=== PATIENT | female | born 1965 | race Hispanic/Latino ===

== ENCOUNTER 2018-07-21 13:14 | Outpatient (CLI) | payer MEDICARE ==
--- NOTE | 2018-07-21 15:02 | Mammography Report ---
Bilateral mammogram and bilateral breast ultrasound: This examination is compromised and done with difficulty due to the patient's special needs. CC and lateral views were obtained bilaterally. There is suboptimal visualization of the breast tissue predominantly in the lateral projections and right cc view. On the left side there is a circumscribed nodule noted laterally in the CC projection. It is elongated and measures approximately 13.5 mm. I cannot identified in the current CC views. In the right breast is a similar nodule noted inferiorly measuring 11.6 mm. The overall breast pattern is heterogeneous and not otherwise remarkable. CAD is utilized. Targeted bilateral ultrasound demonstrates that in the 1:00 position 3 cm from the nipple in the left breast there is a circumscribed homogeneously hypoechoic nodule measuring 11 mm. In the right breast in the 3:00 position 3 cm from the nipple there is also circumscribed and elongated mass measuring 11 mm. It is somewhat inhomogeneous but mostly hypoechoic. Both of these would appear to correspond with the mammographic findings. No other significant findings. 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 Recommendation: Repeat ultrasound in 6 months to confirm stability. BI-RADS CATEGORY: 3 = Probably benign ACR BI-RADS MAMMOGRAPHIC CODES: 0 = Needs additional imaging evaluation; 1 = Negative; 2 = Benign; 3 = Probably benign; 4 = Suspicious; 5 = Malignant; 6 = Known biopsy-proven malignancy COMMENT: 1. Dense breast tissue, i.e., adenosis, fibrocystic changes, etc., may obscure an underlying neoplasm. 2. Approximately 10% of cancers are not detected with mammography. 3. A negative mammography report should not delay biopsy if a clinically suspicious mass is present.
== END 2018-07-21 13:15 | disposition home or self-care (01) ==
LOC: SPVWC 13:14
PROVIDERS: ATTEND Internal Medicine
DX: R92.8 Other abnormal and inconclusive findings on diagnostic imaging of breast (principal)
CPT/HCPCS: 77066; 77067

== ENCOUNTER 2018-12-28 11:00 | Outpatient (CLI) | payer MEDICARE ==
[2018-12-28 12:40] LABS: Hematocrit 34.8 % (30.3-42.9); Hemoglobin 11.1 gm/dl (10.1-14.3); Mean Corpuscular HGB Conc 32 % (30-34); Mean Corpuscular Volume 90 fl (79-97); Platelet Count 363 K/mm3 (140-440); Red Blood Count 3.88 M/mm3 (3.65-5.03); Red Cell Distribution Width 14.4 % (13.2-15.2)
[2018-12-28 12:57] LABS: Alanine Aminotransferase 87 units/L (7-56); BUN/Creatinine Ratio 21; Blood Urea Nitrogen 19 mg/dL (7-17); Calcium 9.2 mg/dL (8.4-10.2); Chol/HDL Ratio 4.03 %; HDL Cholesterol 28 mg/dL (40-59); Hemolysis Index 6; LDL Cholesterol,Direct 75 mg/dL (50-130)
== END 2018-12-28 11:01 | disposition home or self-care (01) ==
LOC: MERGE 11:00 → LAB 11:00
PROVIDERS: ATTEND Internal Medicine
DX: D72.829 Elevated white blood cell count, unspecified (principal); E55.9 Vitamin D deficiency, unspecified; I69.393 Ataxia following cerebral infarction; R73.9 Hyperglycemia, unspecified; I10 Essential (primary) hypertension
CPT/HCPCS: 36415; 80053; 80061; 82306; 82607; 83036; 84443; 85027

== ENCOUNTER 2019-01-09 11:11 | Outpatient (CLI) | payer MEDICARE ==
--- NOTE | 2019-01-15 11:16 | Ultrasound Report ---
BILATERAL BREAST ULTRASOUND: 01/09/19 11:11:00 CLINICAL: Followup bilateral solid nodules. COMPARISON: 07/21/18 FINDINGS: Ultrasound of the right breast demonstrated a stable oval solid hypoechoic superficial mass at 3 o'clock 3 cm from the nipple. It measures 1.0 x 0.5 x 0.6 cm compared to 1.1 x 0.4 x 0.7 cm on last exam.The margin is slightly irregular. No other mass or suspicious shadowing identified. Ultrasound of the left breast demonstrated an oval solid possibly smooth hypoechoic mass at 1 o'clock 3 cm from the nipple measuring 1.1 x 0.7 x 0.4 cm compared to 1.1 x 1.0 and 0.4 cm on the last exam. An oval solid hypoechoic smooth mass at 2 o'clock 3 cm from the nipple measures 5 x 5 x 3 mm compared to 5 x 4 x 2 mm on the last exam. No other mass or suspicious shadowing identified. IMPRESSION: Stable bilateral solid masses with benign sonographic features. The morphology suggest benign fibroadenomas. BI-RADS 2 - - Benign RECOMMENDATION: Clinical followup and routine mammographic screening.
== END 2019-01-09 11:12 | disposition home or self-care (01) ==
LOC: MERGE 11:11 → SPVWC 11:11
PROVIDERS: ATTEND Surgery
DX: N63.12 Unspecified lump in the right breast, upper inner quadrant (principal); N63.21 Unspecified lump in the left breast, upper outer quadrant; I10 Essential (primary) hypertension

== ENCOUNTER 2019-07-12 10:50 | Outpatient (CLI) | payer MEDICARE ==
[2019-07-12 11:30] LABS: BUN/Creatinine Ratio 19; Blood Urea Nitrogen 17 mg/dL (7-17); Calcium 9.4 mg/dL (8.4-10.2); Hemolysis Index 5
== END 2019-07-12 10:51 | disposition home or self-care (01) ==
LOC: LAB 10:50
PROVIDERS: ATTEND Internal Medicine
DX: E87.5 Hyperkalemia (principal); I10 Essential (primary) hypertension
CPT/HCPCS: 36415; 80048

== ENCOUNTER 2020-01-02 13:31 | Outpatient (CLI) | payer MEDICARE ==
[2020-01-02 14:00] LABS: Basophils % (Auto) 0.3 % (0.0-1.8); Eosinophils # (Auto) 0.1 K/mm3 (0.0-0.4); Eosinophils % (Auto) 0.6 % (0.0-4.3); Hematocrit 38.4 % (30.3-42.9); Hemoglobin 12.5 gm/dl (10.1-14.3); Lymphocytes # (Auto) 1.5 K/mm3 (1.2-5.4); Lymphocytes % (Auto) 17.8 % (13.4-35.0); Mean Corpuscular HGB Conc 33 % (30-34); Mean Corpuscular Volume 110 fl (79-97); Monocytes # (Auto) 0.3 K/mm3 (0.0-0.8); Monocytes % (Auto) 3.9 % (0.0-7.3); Platelet Count 340 K/mm3 (140-440); Red Cell Distribution Width 17.2 % (13.2-15.2)
[2020-01-02 14:43] LABS: Albumin 4.7 g/dL (3.9-5); Calcium 9.4 mg/dL (8.4-10.2); Chol/HDL Ratio 2.69 %
[2020-01-05 13:20] LABS: Vitamin D, 25-OH, D2 <4 ng/mL
== END 2020-01-02 13:32 | disposition home or self-care (01) ==
LOC: LAB 13:31
PROVIDERS: ATTEND Internal Medicine
DX: Z13.29 Encounter for screening for other suspected endocrine disorder (principal); R73.03 Prediabetes; E55.9 Vitamin D deficiency, unspecified
CPT/HCPCS: 36415; 80053; 80061; 82306; 82607; 83036; 84443; 85025

== ENCOUNTER 2020-01-15 10:37 | Outpatient (CLI) | payer MEDICARE ==
--- NOTE | 2020-01-15 13:03 | Ultrasound Report ---
LIMITED BILATERAL BREAST ULTRASOUND HISTORY: Follow-up bilateral probably benign masses. COMPARISON: 07/17/2019 and 07/21/2018 FINDINGS: Focused sonographic evaluation upon the 3:00 3 cm from the nipple location of the right david ast demonstrates a stable oval solid heterogeneous hypoechoic mass measuring 1.1 x 0.5 x 0.8 cm. Focused sonographic evaluation upon the 1:00 3 cm from the nipple and 2:00 5 cm from the nipple locat ions of the left breast demonstrates no significant change in masses. The mass at 1:00 measures appro ximately 1.7 x 1.2 x 1.2 cm compared to 1.5 x 1.4 x 1.3 cm on the last exam. On today's exam it appea rs more compressed and flatter which would explain a slightly larger maximum diameter. The mass with a central calcification at 2:00 measures 5 x 2 x 6 mm compared to 6 x 2 x 3 mm. IMPRESSION: No significant change in bilateral masses. Slight differences in measurements are likely due to techn ique since the patient does not cooperate and these masses are moving targets. BIRADS 2: Benign Signer Name: Juve Back MD Signed: 01/15/2020 12:59 PM Workstation Name: [id number]
== END 2020-01-15 10:38 | disposition home or self-care (01) ==
LOC: SPVWC 10:37
PROVIDERS: ATTEND Surgery
DX: N63.41 Unspecified lump in right breast, subareolar (principal); N63.21 Unspecified lump in the left breast, upper outer quadrant; R92.1 Mammographic calcification found on diagnostic imaging of breast

== ENCOUNTER 2020-07-15 10:39 | Outpatient (CLI) | payer MEDICARE ==
--- NOTE | 2020-07-15 16:42 | Ultrasound Report ---
EXAMINATION: Bilateral Limited Breast Ultrasound, 07/15/2020 INDICATION: BREAST NODULES. Patient presents for six-month follow-up of probably benign nodules in both breasts. COMPARISON: Prior breast ultrasounds 01/15/2020, 07/17/2019, 01/09/2019, and 07/21/2018 FINDINGS: Targeted ultrasound evaluation was performed of the area of interest. Right breast: There is a stable to slightly decreased oval circumscribed mass in the right breast 3:0 0 position located 3 cm from the nipple, currently measuring up to 8 x 8 x 5 mm, previously 11 x 7 x 5 mm on prior study in 2018. Left breast: A mass in the left breast 1:00 position located 3 cm from the nipple is not significantl y changed from prior examinations, currently measuring up to 1.6 x 0.3 x 1.4 cm, previously 1.7 x 0.3 x 1.2 cm. A mass with associated calcification in the left breast 2:00 position located 5 cm from th e nipple is also not significantly changed, currently measuring up to 5 x 2 x 4 mm, previously 6 x 2 x 5 mm. IMPRESSION: 1. 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 No suspicious sonographic abnormality identified in either breast. 2. Of note, it appears the patient is currently due for her yearly mammogram. The patient was unable to stay for mammogram today. Dr. Caceres's office was notified. Follow up recommendation: Back to schedule. BI-RADS Category 2: Benign. Signer Name: Chelsie Castillo MD Signed: 07/15/2020 4:37 PM Workstation Name: [email or web address]
== END 2020-07-15 10:40 | disposition home or self-care (01) ==
LOC: SPVWC 10:39
PROVIDERS: ATTEND Surgery
DX: N63.41 Unspecified lump in right breast, subareolar (principal); N63.21 Unspecified lump in the left breast, upper outer quadrant

== ENCOUNTER 2021-05-01 00:11 | Emergency (ER) | payer MEDICARE ==
[2021-05-01 01:02] VITALS: BP 100/64
--- NOTE | 2021-05-01 01:25 | Emergency Department Report ---
ED Abdominal Pain HPI - General Chief Complaint: Abdominal Pain Stated Complaint: CONSTIPATION Time Seen by Provider: 05/01/21 01:12 Source: EMS Mode of arrival: Stretcher Limitations: Physical Limitation, Other - History of Present Illness Initial Comments: Patient is a 55-year-old female past medical history of CVA who is low functioning and needing 100% care who is presenting with possible abdominal pain. Her sitter states that she has not had a bowel movements for the past week. She has been complaining of some abdominal discomfort as she has been holding her abdomen and appears to be straining. No nausea vomiting fevers chills cough cold or congestion. - Related Data Previous Rx's Medication Instructions Recorded Last Taken Type Docusate Sodium [Colace ORAL LIQ] 100 mg PO BID 30 Days oralsyr 05/01/21 Unknown Rx ED Review of Systems ROS: Stated complaint: CONSTIPATION Other details as noted in HPI Comment: All other systems reviewed and negative ED Past Medical Hx - Past Medical History Previous Medical History?: Yes Hx Hypertension: Yes Hx CVA: Yes - Social History Smoking Status: Never Smoker Substance Use Type: None - Medications Home Medications: Home Medications Medication Instructions Recorded Confirmed Last Taken Type Docusate Sodium [Colace ORAL LIQ] 100 mg PO BID 30 Days oralsyr 05/01/21 Unknown Rx ED Physical Exam - General Limitations: Physical Limitation, Other General appearance: alert, in no apparent distress - Head Head exam: Present: atraumatic, normocephalic - Eye Eye exam: Present: normal appearance - ENT ENT exam: Present: mucous membranes moist - Neck Neck exam: Present: normal inspection - Respiratory Respiratory exam: Present: normal lung sounds bilaterally. Absent: respiratory distress, wheezes, rales - Cardiovascular Cardiovascular Exam: Present: regular rate, normal rhythm, normal heart sounds. Absent: systolic murmur, diastolic murmur, rubs, gallop - GI/Abdominal GI/Abdominal exam: Present: soft, normal bowel sounds. Absent: distended, tenderness, guarding, rebound - Extremities Exam Extremities exam: Present: normal inspection - Back Exam Back exam: Present: normal inspection - Neurological Exam Neurological exam: Present: alert, oriented X3 - Psychiatric Psychiatric exam: Present: normal affect, normal mood - Skin Skin exam: Present: warm, dry, intact, normal color. Absent: rash ED Course Vital Signs 05/01/21 01:01 Temperature 98 F Pulse Rate 103 H Respiratory 16 Rate Blood Pressure 100/64 [Left] O2 Sat by Pulse 99 Oximetry ED Medical Decision Making - Radiology Data [facility] [address] [place] [address] XRay Report Signed Patient: RACHAEL ROSE MR#: [id number] : 1965 Acct:[id number] Age/Sex: 55 / F ADM Date: 05/01/21 Loc: ED Attending Dr: Ordering Physician: NOELLE GARAY MD Date of Service: 05/01/21 Procedure(s): XR abdomen 1V ap Accession Number(s): [id number] cc: NOELLE GARAY MD Fluoro Time In Minutes: ABDOMEN 1 VIEW(S) INDICATION / CLINICAL INFORMATION: abd pain. COMPARISON: None available. FINDINGS: TUBES / LINES: None. BOWEL GAS PATTERN: Large stool burden identified throughout the colon. Limited view FREE AIR / EXTRALUMINAL GAS: Limited evaluation ADDITIONAL FINDINGS: No significant additional findings. IMPRESSION: Moderate stool burden identified throughout the colon. Signer Name: Basim Gonzalez MD Signed: 05/01/2021 1:45 AM Workstation Name: [id number] - Medical Decision Making to Rx colace and dc home Critical care attestation.: If time is entered above; I have spent that time in minutes in the direct care of this critically ill patient, excluding procedure time. ED Disposition Clinical Impression: Constipation Disposition: DC-01 TO HOME OR SELFCARE Is pt being admited?: No Does the pt Need Aspirin: No Condition: Stable Instructions: Abdominal Pain (ED), Constipation, Adult Prescriptions: Docusate Sodium [Colace ORAL LIQ] 100 mg PO BID 30 Days oralsyr Time of Disposition: 02:02
--- NOTE | 2021-05-01 01:49 | XRay Report ---
ABDOMEN 1 VIEW(S) INDICATION / CLINICAL INFORMATION: abd pain. COMPARISON: None available. FINDINGS: TUBES / LINES: None. BOWEL GAS PATTERN: Large stool burden identified throughout the colon. Limited view FREE AIR / EXTRALUMINAL GAS: Limited evaluation ADDITIONAL FINDINGS: No significant additional findings. IMPRESSION: Moderate stool burden identified throughout the colon. Signer Name: Basim Gonzalez MD Signed: 05/01/2021 1:45 AM Workstation Name: [id number]
== END 2021-05-01 03:50 | disposition home or self-care (01) ==
LOC: ED 00:11
DX: K59.00 Constipation, unspecified (principal); I10 Essential (primary) hypertension; Z79.899 Other long term (current) drug therapy; Z86.73 Personal history of transient ischemic attack (TIA), and cerebral infarction without residual deficits
CPT/HCPCS: 74018

== ENCOUNTER 2021-07-23 18:02 | Emergency (ER) | payer MEDICARE ==
[2021-07-23] MEDS ORDERED: LIDOCAINE (1%) 10 MG/1 ML VIAL 20 ML MDV INFILTRATI ONE (18:30)
[2021-07-23] MEDS ORDERED: IBUPROFEN 600 MG TAB PO ONE (18:30)
[2021-07-23] MEDS ORDERED: TETANUS,DIPH,PERTUSS(ACELL) VACCINE 0.5 ML SYRINGE IM ONE (18:30)
--- NOTE | 2021-07-23 19:52 | Cat Scan Report ---
CT head/brain wo con INDICATION / CLINICAL INFORMATION: 55 years Female; fall out of wheelchair, facial laceration. TECHNIQUE: Routine CT head without contrast. All CT scans at this location are performed using CT dos e reduction for ALARA by means of automated exposure control. Motion artifact COMPARISON: None. FINDINGS: BRAIN / INTRACRANIAL CONTENTS: Prominent ventricular system seen-central and some component of cortic al atrophy suggested. Otherwise, no acute hemorrhage, mass effect, midline shift, structures hydrocephalus, or acute, larg e territorial infarct. Moderate cerebral atrophy. Moderate degree of hippocampal atrophy suggested bilaterally. There are mild areas of decreased attenuation in the white matter of the cerebral hemispheres. These are nonspecific findings and may be related to microangiopathy (hypertension, diabetes, atheroscleros is), given the patient's age. It might be difficult to evaluate for small areas of ischemia without d iffusion imaging by MRI. CRANIOCERVICAL JUNCTION: No significant abnormality. ORBITS: No significant abnormality of visualized orbits. SINUSES / MASTOIDS: Visualized paranasal sinuses and mastoid air cells are essentially clear. ADDITIONAL FINDINGS: No significant atherosclerotic disease appreciated. IMPRESSION: 1. No focal mass, intracranial hemorrhage, obstructive hydrocephalus, or acute, large territorial inf arct. Signer Name: Geovanni Estrella MD, III Signed: 07/23/2021 7:47 PM Workstation Name: [id number]
--- NOTE | 2021-07-23 19:58 | Cat Scan Report ---
CT facial bones wo con INDICATION / CLINICAL INFORMATION: 55 years Female; fall out of wheelchair, facial laceration. TECHNIQUE: Thin cut axial images obtained. Sagittal and coronal reconstructions performed. All CT scans at this location are performed using CT dose reduction for ALARA by means of automated exposure control. Subo ptimal patient positioning noted. COMPARISON: None available. FINDINGS: Swelling seen in the upper lip. The left lateral incisors not place. The superior root of the medial incisor the right maxillary regu lar ridge projects anteriorly from its expected location. Similar findings on the left medial incisor . Small fracture seen along the anterior cortex of the maxillary regular ridge in this region. Minima l involvement in the anterior nasal spine may be present as well. Otherwise, no definitive signs of fracture appreciated. Mucosal thickening seen in the ethmoids and maxillary antra. IMPRESSION: 1. Trauma to the maxillary alveolar ridge region in the midline, as described above. Signer Name: Geovanni Estrella MD, III Signed: 07/23/2021 7:54 PM Workstation Name: [facility]PITALCitrine InformaticsKINDRED HOS[facility] AT [id number]
--- NOTE | 2021-07-23 20:12 | Emergency Department Report ---
- General Chief Complaint: Wound/Laceration Stated Complaint: FELL NEED STITCHES IN LIP AREA Time Seen by Provider: 07/23/21 18:24 Source: family Mode of arrival: Wheelchair Limitations: Altered Mental Status - History of Present Illness Initial Comments: Patient is a 55-year-old female brought in by her caregiver with complaints of a laceration to the lip that occurred just prior to arrival. The caregiver states that the patient was being transported via a wheelchair van. She states that the patient seatbelt broke and it caused the patient to fall out of her wheelchair and hit her face against the van floor. Caregiver denies any loss of consciousness. She denies any vomiting or acting abnormally. She is unsure of her last tetanus immunization. Caregiver denies any other injuries. Past medical history of cerebral palsy, CVA, developmental delay. No allergies to medications. - Related Data Previous Rx's Medication Instructions Recorded Last Taken Type Docusate Sodium [Colace ORAL LIQ] 100 mg PO BID 30 Days oralsyr 05/01/21 Unknown Rx cephALEXin [Keflex] 500 mg PO QID 7 Days #28 cap 07/23/21 Unknown Rx Allergies Allergy/AdvReac Type Severity Reaction Status Date / Time No Known Allergies Allergy Unverified 07/23/21 18:15 ED Review of Systems ROS: Stated complaint: FELL NEED STITCHES IN LIP AREA Other details as noted in HPI Comment: All other systems reviewed and negative ED Past Medical Hx - Past Medical History Hx Hypertension: Yes Hx CVA: Yes - Social History Smoking Status: Never Smoker Substance Use Type: None - Medications Home Medications: Home Medications Medication Instructions Recorded Confirmed Last Taken Type Docusate Sodium [Colace ORAL LIQ] 100 mg PO BID 30 Days oralsyr 05/01/21 Unknown Rx cephALEXin [Keflex] 500 mg PO QID 7 Days #28 cap 07/23/21 Unknown Rx ED Physical Exam - General Limitations: Altered Mental Status General appearance: alert, in no apparent distress - Head Head exam: Present: other (1 cm laceration present superior to the left upper lip, 1 cm laceration present to the upper lip in the lip mucosa, 1 cm laceration present to the upper inner lip, no obvious facial or skull bony ttp, appears to have missing incisior ) - Eye Eye exam: Present: normal appearance, PERRL, EOMI, other (no signs of entrapment). Absent: periorbital swelling, periorbital tenderness - Neck Neck exam: Present: normal inspection, full ROM. Absent: tenderness, meningismus - Respiratory Respiratory exam: Present: normal lung sounds bilaterally. Absent: respiratory distress, wheezes, rales, rhonchi, stridor, chest wall tenderness, accessory muscle use, decreased breath sounds, prolonged expiratory - Cardiovascular Cardiovascular Exam: Present: regular rate, normal rhythm, normal heart sounds. Absent: systolic murmur, diastolic murmur, rubs, gallop - Extremities Exam Extremities exam: Present: other (there is ecchymosis, abrasion present to the left shoulder, FROM of the BUE, no abrasion or ecchymosis to the RUE or BLE, neurovascularly intact) - Back Exam Back exam: Present: normal inspection, full ROM. Absent: paraspinal tenderness, vertebral tenderness - Neurological Exam Neurological exam: Present: alert, oriented X3, CN II-XII intact, normal gait. Absent: motor sensory deficit - Psychiatric Psychiatric exam: Present: normal affect, normal mood - Skin Skin exam: Present: warm, dry ED Course Vital Signs 07/23/21 07/23/21 07/23/21 18:09 20:04 22:03 Temperature 98.4 F 97.6 F 98.0 F Pulse Rate 68 138 H 80 Respiratory 20 12 14 Rate Blood Pressure 127/75 Blood Pressure 143/93 115/64 [Left] O2 Sat by Pulse 88 85 94 Oximetry - Laceration /Wound Repair Face Wound Location: mouth Wound Length (cm): 1 (there are 3 lacerations) Wound's Depth, Shape: superficial Wound Explored: clean Irrigated w/ Saline (ccs): 100 Anesthesia: 1% Lidocaine Volume Anesthetic (ccs): 4 Wound Debrided: moderate Wound Repaired With: sutures Suture Size/Type: 5:0, proline Number of Sutures: 4 Layer Closure?: Yes (inner lip mucosa) Deep Layer Suture Size/Type: 5:0 (vicryl) Number Deep Layer Sutures: 1 Progress: Verbal consent obtained by patient's caregiver Wounds irrigated with saline and thoroughly scrubbed with Betadine, 4 cc of 1% lidocaine without epinephrine used anesthetic, Betadine prep again, sterile gloves worn, started supine, 5-0 Prolene used for skin closure, 4 sutures placed, 5-0 Vicryl used for inner lip closure, 1 suture placed, patient tolerated well, no complications, bleeding controlled ED Medical Decision Making - Radiology Data Radiology results: report reviewed Ordering Physician: BAIRON HOFFMAN Date of Service: 07/23/21 Procedure(s): CT facial bones wo con Accession Number(s): [id number] cc: BAIRON HOFFMAN CT facial bones wo con INDICATION / CLINICAL INFORMATION: 55 years Female; fall out of wheelchair, facial laceration. TECHNIQUE: Thin cut axial images obtained. Sagittal and coronal reconstructions performed. All CT scans at this location are performed using CT dose reduction for ALARA by means of automated exposure control. Suboptimal patient positioning noted. COMPARISON: None available. FINDINGS: Swelling seen in the upper lip. The left lateral incisors not place. The superior root of the medial incisor the right maxillary regular ridge projects anteriorly from its expected location. Similar findings on the left medial incisor. Small fracture seen along the anterior cortex of the maxillary regular ridge in this region. Minimal involvement in the anterior nasal spine may be present as well. Otherwise, no definitive signs of fracture appreciated. Mucosal thickening seen in the ethmoids and maxillary antra. IMPRESSION: 1. Trauma to the maxillary alveolar ridge region in the midline, as described above. Signer Name: Geovanni Estrella MD, III Signed: 07/23/2021 7:54 PM Workstation Name: [id number] Transcribed By: HR Dictated By: Geovanni Estrella MD Electronically Authenticated By: Geovanni Estrella MD Signed Date/Time: 07/23/211953 DD/ 49 TD/TT: Ordering Physician: BAIRON HOFFMAN Date of Service: 07/23/21 Procedure(s): CT head/brain wo con Accession Number(s): [id number] cc: BAIRON HOFFMAN CT head/brain wo con INDICATION / CLINICAL INFORMATION: 55 years Female; fall out of wheelchair, facial laceration. TECHNIQUE: Routine CT head without contrast. All CT scans at this location are performed using CT dose reduction for ALARA by means of automated exposure control. Motion artifact COMPARISON: None. FINDINGS: BRAIN / INTRACRANIAL CONTENTS: Prominent ventricular system seen-central and some component of cortical atrophy suggested. Otherwise, no acute hemorrhage, mass effect, midline shift, structures hydrocephalus, or acute, large territorial infarct. Moderate cerebral atrophy. Moderate degree of hippocampal atrophy suggested bilaterally. There are mild areas of decreased attenuation in the white matter of the cerebral hemispheres. These are nonspecific findings and may be related to microangiopathy (hypertension, diabetes, atherosclerosis), given the patient's age. It might be difficult to evaluate for small areas of ischemia without diffusion imaging by MRI. CRANIOCERVICAL JUNCTION: No significant abnormality. ORBITS: No significant abnormality of visualized orbits. SINUSES / MASTOIDS: Visualized paranasal sinuses and mastoid air cells are essentially clear. ADDITIONAL FINDINGS: No significant atherosclerotic disease appreciated. IMPRESSION: 1. No focal mass, intracranial hemorrhage, obstructive hydrocephalus, or acute, large territorial infarct. Signer Name: Geovanni Estrella MD, III Signed: 07/23/2021 7:47 PM Workstation Name: [id number] [id number] Transcribed By: Dictated By: Geovanni Estrella MD Electronically Authenticated By: Geovanni Estrella MD Signed Date/Time: 07/23/211946 DD/ 42 TD/TT: Ordering Physician: BAIRON HOFFMAN Date of Service: 07/23/21 Procedure(s): XR shoulder 2+V LT Accession Number(s): [id number] cc: BAIRON HOFFMAN Fluoro Time In Minutes: LEFT SHOULDER 4 VIEW(S) INDICATION / CLINICAL INFORMATION: left shoulder bruising/swelling COMPARISON: None available. FINDINGS: BONES / JOINT(S): No acute fracture or subluxation. No significant arthritis. SOFT TISSUES: No significant abnormality. ADDITIONAL FINDINGS: None. Signer Name: Lars Kamara MD Signed: 07/23/2021 9:30 PM Workstation Name: [id number] Transcribed By: SB Dictated By: LARS KAMARA MD Electronically Authenticated By: LASR KAMARA MD Signed Date/Time: 07/23/212129 DD/ 28 TD/TT: Print - Medical Decision Making Patient is a 55-year-old female brought in by her caregiver with complaints of a laceration to the lip that occurred just prior to arrival. The caregiver states that the patient was being transported via a wheelchair van. She states that the patient seatbelt broke and it caused the patient to fall out of her wheelchair and hit her face against the van floor. Caregiver denies any loss of consciousness. She denies any vomiting or acting abnormally. She is unsure of her last tetanus immunization. Caregiver denies any other injuries. Past medical history of cerebral palsy, CVA, developmental delay. No allergies to medications. vitals are normal. on exam: 1 cm laceration present superior to the left upper lip, 1 cm laceration present to the upper lip in the lip mucosa, 1 c m laceration present to the upper inner lip, no obvious facial or skull bony ttp, appears to have missing incisior, there is ecchymosis, abrasion present to the left shoulder, FROM of the BUE, no abrasion or ecchymosis to the RUE or BLE, neurovascularly intact. CT facial bones: 1. Trauma to the maxillary alveolar ridge region in the midline, as described above. CT head: 1. No focal mass, intracranial hemorrhage, obstructive hydrocephalus, or acute, large territorial infarct. XR left shoulder: BONES / JOINT(S): No acute fracture or subluxation. No significant arthritis. SOFT TISSUES: No significant abnormality. ADDITIONAL FINDINGS: None. Discussed all results with patient's caregiver. Discussed the importance of outpatient primary care and dental follow-up. Tdap updated while in the emergency department. Lacerations repaired per procedure note without any complications. Given prescription for Keflex. Advised patient's caregiver Please give medication as prescribed. May alternate Tylenol or ibuprofen as needed for any pain. Follow-up with a primary care doctor for reexamination. follow up with a dentist. Sutures on the face and outer lip need to be removed in 7 days. Return to emergency room for any new or worsening symptoms. Critical care attestation.: If time is entered above; I have spent that time in minutes in the direct care of this critically ill patient, excluding procedure time. ED Disposition Clinical Impression: Dental trauma Facial laceration Qualifiers: Encounter type: initial encounter Qualified Code(s): S01.81XA - Laceration without foreign body of other part of head, initial encounter Abrasion of left shoulder Qualifiers: Encounter type: initial encounter Qualified Code(s): S40.212A - Abrasion of left shoulder, initial encounter Disposition: HOME / SELF CARE / HOMELESS Is pt being admited?: No Does the pt Need Aspirin: No Condition: Stable Instructions: Laceration Care, Adult Additional Instructions: Please give medication as prescribed. May alternate Tylenol or ibuprofen as needed for any pain. Follow-up with a primary care doctor for reexamination. follow up with a dentist. Sutures on the face and outer lip need to be removed in 7 days. Return to emergency room for any new or worsening symptoms. Prescriptions: cephALEXin [Keflex] 500 mg PO QID 7 Days #28 cap Referrals: PRIMARY CARE, [Primary Care Provider] - 2-3 Days a, dentist [Other] - 2-3 Days Time of Disposition: 21:51 Print Language: AZERI
--- NOTE | 2021-07-23 21:35 | XRay Report ---
LEFT SHOULDER 4 VIEW(S) INDICATION / CLINICAL INFORMATION: left shoulder bruising/swelling COMPARISON: None available. FINDINGS: BONES / JOINT(S): No acute fracture or subluxation. No significant arthritis. SOFT TISSUES: No significant abnormality. ADDITIONAL FINDINGS: None. Signer Name: Lars Styles MD Signed: 07/23/2021 9:30 PM Workstation Name: [id number]
[2021-07-23 22:04] VITALS: BP 115/64
== END 2021-07-23 22:04 | disposition home or self-care (01) ==
LOC: ED 18:02
DX: S01.511A Laceration without foreign body of lip, initial encounter (principal); S40.212A Abrasion of left shoulder, initial encounter; R41.82 Altered mental status, unspecified; I10 Essential (primary) hypertension; Z86.73 Personal history of transient ischemic attack (TIA), and cerebral infarction without residual deficits; W19.XXXA Unspecified fall, initial encounter; Y93.89 Activity, other specified; Y92.89 Other specified places as the place of occurrence of the external cause; Y99.8 Other external cause status
CPT/HCPCS: 70450; 70486; 90471; 90715; 99284